=== PATIENT | female | born 1960 | race Caucasian/White ===

== ENCOUNTER 2018-04-17 10:11 | Emergency (ER) | END 2018-04-17 12:45 | disposition left against medical advice (07) ==

== ENCOUNTER 2018-07-17 19:57 | Emergency (ER) | END 2018-07-17 21:04 | disposition left against medical advice (07) ==

== ENCOUNTER 2018-08-06 15:22 | Emergency (ER) | END 2018-08-06 18:59 | disposition home or self-care (01) ==